=== PATIENT | female | born 1950 | race Caucasian/White ===

== ENCOUNTER 2021-12-11 16:14 | Emergency (ER) | payer MEDICARE ==
[2021-12-11 16:47] LABS: HEMOGLOBIN 10.7 gm/dl (12.3-15.3); RED BLOOD COUNT 3.37 M/UL (4.00-5.10); WHITE BLOOD COUNT 3.1 K/UL (4.5-11.0)
== END 2021-12-11 20:50 | disposition home or self-care (01) ==
LOC: ER1 16:14
DX: D61.818 Other pancytopenia (principal); K74.60 Unspecified cirrhosis of liver; E11.9 Type 2 diabetes mellitus without complications; I10 Essential (primary) hypertension; Z90.49 Acquired absence of other specified parts of digestive tract; Z88.7 Allergy status to serum and vaccine; Z88.5 Allergy status to narcotic agent; Z79.4 Long term (current) use of insulin
CPT/HCPCS: 80053; 81001; 82009; 82140; 82803; 82962; 85025; 96374; 99284